=== PATIENT | female | born 1945 | race Caucasian/White ===

== ENCOUNTER → 2017-03-28 | Outpatient (CLI) | payer MEDICARE, OTHER ==
[~2017-03-28] MED LIST: AZO STANDARD97.5 MG PO; CALCIUM1 TA1 PO; CARVEDILOL6.25 M1 PO; CITALOPRAM HYDR20 MG PO; Ciprofloxacin250 MG PO; FUROSEMIDE 20MG20 MG PO; HUMULIN R U-500 U/ML SC; LEVOTHYROXIN0.075 M2 PO; LOSARTAN POTAS100 MG PO; METFORMIN HCL1000 MG PO; NORTRIPTYLINE H25 MG PO; OMEPRAZOLE40 MG PO; TRIAMCINOL80 GM/TUBE TP; VICTOZA6 MG/ML SC; ZETIA10 MG PO
[2017-03-28 11:36] LABS: BUN 13 mg/dL (7-18)
[2017-03-28 11:42] LABS: GFR (ESTIMATED) 83 ML/MIN (59-)
== END ==
LOC: LAB 09:30
PROVIDERS: Internal Medicine Endocrinology, Diabetes & Metabolism
DX: E11.42 Type 2 diabetes mellitus with diabetic polyneuropathy (principal); Z79.4 Long term (current) use of insulin

== ENCOUNTER 2017-08-02 07:04 | Day surgery (SDC) | payer MEDICARE, OTHER ==
[2017-08-02 09:09] VITALS: BP 132/67
== END 2017-08-02 09:05 | disposition home or self-care (01) ==
LOC: SDC 07:04
PROVIDERS: Ophthalmology
PROC: 08RJ3JZ Replacement of Right Lens with Synthetic Substitute, Percutaneous Approach (ICD-10-PCS; principal; 2017-08-02 08:30)
DX: H25.9 Unspecified age-related cataract (principal); Z96.1 Presence of intraocular lens; E11.9 Type 2 diabetes mellitus without complications
CPT/HCPCS: V2632